=== PATIENT | female | born 1950 | race Caucasian/White ===

== ENCOUNTER 2017-10-27 09:04 | Emergency (ER) | payer MEDICARE, OTHER ==
--- NOTE | 2017-10-28 16:02 | ER ---
DATE SEEN: 10/27/2017 TIME SEEN: The patient was seen at approximately 0910 hours. HISTORY OF PRESENT ILLNESS: This 66-year-old, nonsmoking and nondiabetic, woman comes in with 5 days of treatment with Tamiflu. She is on her last dose today. She still has the cough with mild headache. Denies temperatures. Denies fever, sore throat, or sinus pressure, but she has myalgia and feels "weak and dizzy" in her legs. She has not fallen down. No previous history of falling. A year ago, she did fall per her daughter. PAST MEDICAL HISTORY: Significant for hypothyroidism, dyslipidemia, hypertension, and depression. REVIEW OF SYSTEMS: Negative, except for HPI. PAST SURGICAL HISTORY: No previous history of hip fracture or previous surgery. ALLERGIES: None. CURRENT MEDICATIONS: 1. Zoloft. 2. BuSpar. 3. Lisinopril. 4. Atorvastatin. 5. Levothyroxine. PHYSICAL EXAMINATION: VITAL SIGNS: Blood pressure 149/89 and repeat blood pressure 134/86, heart rate 76 and followup heart rate 71, respirations 18 and repeat was 16, 95% oxygen saturation, and temperature is 36.4 degrees centigrade. BMI is 31.5 kg/m2. GENERAL: The patient is overweight. She is attended by her daughter. She has noticeable jowls in her jaw. HEENT: PERRLA intact. Pharynx without abnormality - negative. She has a very, very slight asymmetry of the face, more prominent on left, nasopharyngeal fold as opposed to less on the right. No dysesthesia or hypoesthesia in upper and lower face. Hearing is intact. LUNGS: Clear without rales, rhonchi, or wheezes. No chest wall discomfort. HEART: S1, S2. No murmur. ABDOMEN: Soft. No guarding. No discomfort. EXTREMITIES: Without difficulty. NEUROLOGIC: Complete neurological exam is normal deep tendon reflexes, cranial nerves 2 through 12, oriented, gait and strength of upper and lower extremities. No pronator drift. No dysmetria. Trifle tremor. ASSESSMENT: 1. Status post treatment for flu. 2. Bronchitis, which is residual of the flu. She still will have 24 hours of shedding of the virus. She needs to use a face mask and use it for 24/7 until her cough has relented. She is the source of other viral particles and other people are coughing in the same residence where she lives. If she gets worse cough, maybe she has encountering a different virus. At this point, follow up with her doctor as needed in a week. PLAN: The patient has been advised that the CDC and other Infectious Disease groups note that she has an average of 18 days of coughing. She still has 10 to 11 more days of coughing expected. She has talked about "what am I going to do for headache". The headache is residual of her cough. She has no suggestion of any neurological deficit that would require a CT of the head or further neurological followup. She can use Tylenol and ibuprofen; 1000 mg of Tylenol, ibuprofen 600 mg q.6 hours. She has been advised, yes she will have a headache as long as she coughs, and she is to use a face mask, it may diminish her cough by 50+ percent and have less of a headache. /[id number] MACKENZIE/SITA DENNIS
== END 2017-10-27 10:26 | disposition home or self-care (01) ==
LOC: FB.ED 09:04
DX: J40 Bronchitis, not specified as acute or chronic (principal); J11.1 Influenza due to unidentified influenza virus with other respiratory manifestations; I10 Essential (primary) hypertension; E03.9 Hypothyroidism, unspecified; E78.5 Hyperlipidemia, unspecified; F32.9 Major depressive disorder, single episode, unspecified
CPT/HCPCS: 36415; 80053; 81001; 84484; 85025; 87081; 87430; 87804; 99282; 99283

== ENCOUNTER 2020-08-15 11:42 | Emergency (ER) | payer MEDICARE, OTHER ==
[2020-08-15] MEDS ORDERED: Ondansetron 4 MG Tab.DIS PO ONE (11:43)
--- NOTE | 2020-08-15 12:14 | EDM.PDOC ---
ED HPI GENERAL MEDICAL PROBLEM - General Stated Complaint: NOT FEELING WELL Time Seen by Provider: 08/15/20 12:10 Source of Information: Reports: Patient History Limitations: Reports: No Limitations - History of Present Illness INITIAL COMMENTS - FREE TEXT/NARRATIVE: 69-year-old female who reports she began to have a cough and nasal congestion on 08/07/2020 and she has persisted with these symptoms as well as body aches and headache and malaise but today she felt nausea but had no vomiting. She also had a few loose stools and she "did not feel well today". She denies any pain at present. She has had no chest pain or feelings of shortness of breath. She has had nausea but no vomiting. She has had 2 loose stools today. There was no blood in either of these. She does feel somewhat weak but has had no syncope or presyncope. She has been drinking liquids well. She has not had much of an appetite. She would rate her pain now as a 0/10. No dysuria or hematuria. She has sore throat at the beginning of this but that has resolved. There are no other associated signs or symptoms. There are no other modifying factors. Onset: Other (08/07/2020) Duration: Constant, Getting Worse (Patient feels getting worse with additional symptoms as above.) Location: Reports: Generalized Quality: Reports: Ache Severity: Mild Improves with: Reports: None Worsens with: Reports: None Context: Reports: Other (As above) Associated Symptoms: Reports: Cough, Fever/Chills, Loss of Appetite, Malaise, Nausea/Vomiting, Weakness Treatments WOOD POLE TREATER: Reports: Acetaminophen, Other (see below) Other Treatments WOOD POLE TREATER: Advil in AM - Related Data Allergies Allergy/AdvReac Type Severity Reaction Status Date / Time No Known Allergies Allergy Verified 08/15/20 11:59 Home Meds: Home Meds Levothyroxine 112 mcg PO DAILY 10/27/17 [History] Lisinopril 20 mg PO DAILY 10/27/17 [History] atorvaSTATin [Lipitor] 60 mg PO BEDTIME 10/27/17 [History] busPIRone [Buspar] 15 mg PO BID 10/27/17 [History] Ezetimibe 10 mg PO DAILY 08/15/20 [History] Ondansetron [Zofran ODT] 4 mg PO Q6H PRN #8 tab.dis 08/15/20 [Rx] Past Medical History HEENT History: Reports: Impaired Vision Cardiovascular History: Reports: High Cholesterol, Hypertension Endocrine/Metabolic History: Reports: Hypothyroidism - Past Surgical History Musculoskeletal Surgical History: Reports: Shoulder Surgery (Right shoulder open reduction internal fixation) Social & Family History - Tobacco Use Tobacco Use Status *Q: Unknown Ever Used Tobacco (Nonsmoker.) - Caffeine Use Caffeine Use: Reports: Coffee, Soda - Alcohol Use Alcohol Use History: Yes Alcohol Use Frequency: Weekly - Living Situation & Occupation Occupation: Retired ED ROS GENERAL - Review of Systems Review Of Systems: See Below Constitutional: Reports: Fever, Malaise, Weakness, Fatigue, Decreased Appetite HEENT: Reports: Other (Nasal congestion) Respiratory: Reports: Cough Cardiovascular: Reports: No Symptoms GI/Abdominal: Reports: Diarrhea, Nausea : Reports: No Symptoms Musculoskeletal: Reports: Other (Body aches) Skin: Reports: No Symptoms Neurological: Reports: Headache Hematologic/Lymphatic: Reports: No Symptoms Immunologic: Reports: No Symptoms ED EXAM, GENERAL - Physical Exam Exam: See Below Exam Limited By: No Limitations General Appearance: Alert, WD/WN, No Apparent Distress Eye Exam: Bilateral Eye: EOMI, Normal Inspection Ears: Normal External Exam, Hearing Grossly Normal Ear Exam: Bilateral Ear: Auricle Normal Nose: No Blood, Other (Nasal congestion) Throat/Mouth: Normal Voice, No Airway Compromise, Other (Moist membranes.) Head: Atraumatic, Normocephalic Neck: Normal Inspection, Supple, Non-Tender, Full Range of Motion Respiratory/Chest: No Respiratory Distress, Lungs Clear, Normal Breath Sounds, No Accessory Muscle Use, Chest Non-Tender Cardiovascular: Normal Peripheral Pulses, Regular Rate, Rhythm, No JVD, No Murmur Peripheral Pulses: 2+: Radial (L), Radial (R) GI/Abdominal: Normal Bowel Sounds, Soft, Non-Tender, No Mass Back Exam: Normal Inspection Extremities: Normal Inspection, Normal Range of Motion, Non-Tender, No Pedal Edema, Normal Capillary Refill Neurological: Alert, Oriented, CN II-XII Intact, Normal Cognition, No Motor/Sensory Deficits Skin Exam: Warm, Dry, Intact, Normal Color, No Rash Course - Vital Signs Last Recorded V/S: Last Vital Signs Temp 36.4 C 08/15/20 12:00 Pulse 91 08/15/20 12:00 Resp 18 08/15/20 12:00 BP 120/72 08/15/20 12:00 Pulse Ox 97 08/15/20 12:00 - Orders/Labs/Meds Orders: Active Orders 24 hr Category Date Time Status CORONAVIRUS (COVID19) [facility] Routine Lab 08/15/20 12:10 Received Labs: Laboratory Tests 08/15/20 Range/Units 12:10 Group A Strep (PCR) Negative (NEGATIVE) - Re-Assessments/Exams Free Text/Narrative Re-Assessment/Exam: 08/15/20 12:30: Patient with URI type symptoms. She has some nausea but has had no vomiting. She has had a few loose stools. Her blood pressure and pulse are normal. She does not appear dehydrated. Her O2 saturation is normal. A rapid strep was performed and was negative. A swab for COVID 19 test was collected and sent for testing. I will give the patient a take home pack of Zofran. She can use this for nausea as needed. She can also get Imodium ([id number]) diarrhea as needed. Treatment is symptomatic. Precautions and reasons for return to the emergency department were discussed with the patient while she was in the emergency department and were detailed in the patient's discharge instructions. It was stressed that did stay at home and avoid contact with others until the test result for Covid 19 has come back. Departure - Departure Time of Disposition: 12:45 Disposition: Home, Self-Care 01 Condition: Good (Stable) Clinical Impression: URI (upper respiratory infection) Qualifiers: URI type: unspecified URI Qualified Code(s): J06.9 - Acute upper respiratory infection, unspecified - Discharge Information Prescriptions: Ondansetron [Zofran ODT] 4 mg PO Q6H PRN #8 tab.dis PRN Reason: Nausea/Vomiting Referrals: PCP,None [Primary Care Provider] - Additional Instructions: Your strep screen was negative. You appear to have an upper respiratory infection. This appears to be a viral illness. We did send testing for Covid 19. The results of this test will be back sometime next week. You should self quarantine until the test result is back. Drink plenty of fluids. Take Tylenol and ibuprofen as needed for fever or pain. Medication as prescribed for nausea (Zofran 4 mg ODT). You can also get Imodium ([id number]) and take that as needed for diarrhea. Back to the emergency department for unrelenting vomiting, severe weakness, shortness of breath, chest pain or any other concerning sign or symptom. Sepsis Event Note (ED) - Evaluation Sepsis Screening Result: No Definite Risk - Focused Exam Vital Signs: Vital Signs Temp Pulse Resp BP Pulse Ox 08/15/20 12:00 36.4 C 91 18 120/72 97 - My Orders Last 24 Hours: My Active Orders 08/15/20 12:10 CORONAVIRUS (COVID19) [facility] Routine - Assessment/Plan Last 24 Hours: My Active Orders 08/15/20 12:10 CORONAVIRUS (COVID19) [facility] Routine
[2020-08-17 16:46] LABS: CORNONAVIRUS (COVID19) CSH-NRL Positive (Negative)
== END 2020-08-15 12:55 | disposition home or self-care (01) ==
LOC: FB.ED 11:42
DX: U07.1 COVID-19 (principal); J06.9 Acute upper respiratory infection, unspecified; E78.00 Pure hypercholesterolemia, unspecified; I10 Essential (primary) hypertension; E03.9 Hypothyroidism, unspecified; Z79.899 Other long term (current) drug therapy
CPT/HCPCS: 87651; 99284; U0003; A9270-GY

== ENCOUNTER 2020-12-04 00:05 | Emergency (ER) | payer MEDICARE, OTHER ==
[2020-12-04] MEDS ORDERED: Sodium Chloride 0.9% 10 ML Syringe FLUSH PRN (00:23)
[2020-12-04] MEDS ORDERED: Ondansetron 4 MG/2 ML SDV IVPUSH STA ×2 (00:23→00:54)
[2020-12-04] MEDS ORDERED: Ondansetron 4 MG Tab.DIS PO STA (00:27)
[2020-12-04] MEDS ORDERED: Sodium Chloride 0.9% 1,000 ML IV SCH ×2 (00:30→01:00)
[2020-12-04] MEDS ORDERED: Ketorolac 30 MG/ML SDV IVPUSH ONE (00:55)
--- NOTE | 2020-12-04 01:18 | EDM.PDOC ---
ED HPI GENERAL MEDICAL PROBLEM - General Chief Complaint: Gastrointestinal Problem Stated Complaint: DIZZY; NAUSEA; PUKING Time Seen by Provider: 12/04/20 00:10 Source of Information: Reports: Patient History Limitations: Reports: No Limitations - History of Present Illness INITIAL COMMENTS - FREE TEXT/NARRATIVE: Patient presented to the ED because of persistent nausea and vomiting which started hours after she took trazodone 150 mg and gabapentin 100 mg for insomnia. She also c/o dizziness and she fell on the bathroom floor. She was able to get up and walk but c/o low back pain,11/27. - Related Data Allergies Allergy/AdvReac Type Severity Reaction Status Date / Time No Known Allergies Allergy Verified 12/04/20 00:19 Home Meds: Home Meds Ezetimibe 10 mg PO DAILY 08/15/20 [History] Gabapentin [Neurontin] 100 mg PO BEDTIME 12/04/20 [History] Hydrochlorothiazide/Lisinopril [Lisinopril/HCTZ 10-12.5 MG] 1 tab PO DAILY 12/04/20 [History] Levothyroxine 12.5 mcg PO ACBREAKFAST 12/04/20 [History] Levothyroxine [Synthroid] 50 mcg PO DAILY 12/04/20 [History] Mirabegron [Myrbetriq] 25 mg PO DAILY 12/04/20 [History] Pravastatin [Pravachol] 40 mg PO DAILY 12/04/20 [History] hydrOXYzine pamoate [Vistaril] 25 - 50 mg PO BEDTIME #30 cap 12/04/20 [Rx] traZODone 50 mg PO BEDTIME 12/04/20 [History] Past Medical History HEENT History: Reports: Impaired Vision Cardiovascular History: Reports: High Cholesterol, Hypertension Other Gastrointestinal History: diarrhea today 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 Musculoskeletal History: shoulder surgery Endocrine/Metabolic History: Reports: Hypothyroidism - Infectious Disease History Infectious Disease History: Reports: Chicken Pox - Past Surgical History HEENT Surgical History: Reports: None Cardiovascular Surgical History: Reports: None GI Surgical History: Reports: None Endocrine Surgical History: Reports: None Musculoskeletal Surgical History: Reports: Shoulder Surgery Social & Family History - Family History Family Medical History: Unobtainable HEENT: Reports: None - Tobacco Use Tobacco Use Status *Q: Never Tobacco User - Caffeine Use Caffeine Use: Reports: None - Recreational Drug Use Recreational Drug Use: No - Living Situation & Occupation Occupation: Retired ED ROS GENERAL - Review of Systems Review Of Systems: See Below Constitutional: Reports: No Symptoms HEENT: Reports: No Symptoms Respiratory: Reports: No Symptoms Cardiovascular: Reports: No Symptoms Endocrine: Reports: No Symptoms GI/Abdominal: Reports: No Symptoms : Reports: No Symptoms Musculoskeletal: Reports: Back Pain Skin: Reports: No Symptoms Neurological: Reports: No Symptoms Psychiatric: Reports: No Symptoms ED EXAM, GI/ABD - Physical Exam Exam: See Below Exam Limited By: No Limitations General Appearance: Alert, No Apparent Distress Ears: Normal External Exam, Normal Canal Nose: Normal Inspection, Normal Mucosa Throat/Mouth: Normal Inspection, Normal Lips Head: Atraumatic, Normocephalic Neck: Normal Inspection, Supple, Non-Tender, Full Range of Motion Respiratory/Chest: No Respiratory Distress, Lungs Clear, Normal Breath Sounds Cardiovascular: Normal Peripheral Pulses, Regular Rate, Rhythm, No Edema, No Gallop, No JVD, No Murmur, No Rub GI/Abdominal Exam: Normal Bowel Sounds, Soft, Non-Tender, No Organomegaly Back Exam: Normal Inspection, Muscle Spasm Extremities: Normal Inspection, Normal Range of Motion, Non-Tender Course - Vital Signs Text/Narrative:: Labs reviewed with patient and her daughter NS 1 L bolus Zofran ODT 4 mg PO x1 Zofran 4 mg IV x1 Toradol 15 mg IV x1 Last Recorded V/S: Last Vital Signs Temp 36.6 C 12/04/20 00:05 Pulse 80 12/04/20 00:05 Resp 15 12/04/20 00:05 BP 117/61 12/04/20 00:05 Pulse Ox 97 12/04/20 00:05 - Orders/Labs/Meds Orders: Active Orders 24 hr Category Date Time Status Chest 1V Frontal [CR] Stat Exams 12/04/20 00:25 Stop Req Sodium Chloride 0.9% [Normal Saline] 1,000 ml Med 12/04/20 01:00 Active IV ASDIRECTED EKG 12 Lead [EK] Routine Ther 12/04/20 00:23 Stop Req Medication Orders Sodium Chloride (Normal Saline) 1,000 mls @ 999 mls/hr IV ASDIRECTED RALPH Last Admin: 12/04/20 01:00 Dose: 999 mls/hr Documented by: ROBERTO Labs: Laboratory Tests 12/04/20 12/04/20 Range/Units 00:45 00:45 WBC 17.6 H (3.0-10.3) x10-3/uL RBC 4.28 (3.60-5.20) x10(6)uL Hgb 13.2 (11.4-15.5) g/dL Hct 40.3 (34.2-48.2) % MCV 94.1 (76.7-100.5) fL MCH 30.8 (23.9-33.9) pg MCHC 32.7 (31.9-34.8) g/dL RDW 13.4 (12.3-16.5) % Plt Count 375 (151-488) x10(3)uL MPV 7.2 (7.1-12.4) fL Add Manual Diff Yes Neutrophils % (Manual) 70 (46-82) % Band Neutrophils % 2 (0-6) % Lymphocytes % (Manual) 19 (13-37) % Monocytes % (Manual) 8 (4-12) % Eosinophils % (Manual) 1 (0-5) % Sodium 140 (135-145) mmol/L Potassium 3.5 (3.5-5.3) mmol/L Chloride 101 (100-110) mmol/L Carbon Dioxide 27 (21-32) mmol/L BUN 16 (7-18) mg/dL Creatinine 1.1 H (0.55-1.02) mg/dL Est Cr Clr Drug Dosing 39.37 mL/min Estimated GFR (MDRD) 49 L (>60) BUN/Creatinine Ratio 14.5 (9-20) Glucose 126 H (80-116) mg/dL Calcium 9.1 (8.6-10.2) mg/dL Meds: Medications Generic Name Dose Route Start Last Admin Trade Name Freq PRN Reason Stop Dose Admin Sodium Chloride 1,000 mls @ 999 mls/hr 12/04/20 01:00 12/04/20 01:00 Normal Saline IV 999 mls/hr ASDIRECTED RALPH Administration Discontinued Medications Generic Name Dose Route Start Last Admin Trade Name Freq PRN Reason Stop Dose Admin Sodium Chloride 1,000 mls @ 999 mls/hr 12/04/20 00:30 Normal Saline IV ASDIRECTED RALPH Ketorolac Tromethamine 15 mg 12/04/20 00:55 12/04/20 01:00 Ketorolac 30 Mg/Ml Sdv IVPUSH 12/04/20 00:56 15 mg ONETIME ONE Administration Ondansetron HCl 4 mg 12/04/20 00:23 12/04/20 01:00 Ondansetron 4 Mg/2 Ml Sdv IVPUSH 12/04/20 00:24 4 mg NOW STA Administration Ondansetron HCl 4 mg 12/04/20 00:27 12/04/20 00:35 Ondansetron 4 Mg Tab.Dis PO 12/04/20 00:28 4 mg NOW STA Administration Ondansetron HCl 4 mg 12/04/20 00:54 12/04/20 01:10 Ondansetron 4 Mg/2 Ml Sdv IVPUSH 12/04/20 00:55 Not Given NOW STA Sodium Chloride 10 ml 12/04/20 00:23 12/04/20 00:55 Sodium Chloride 0.9% 10 Ml Syringe FLUSH 10 ml ASDIRECTED PRN Administration Keep Vein Open Departure - Departure Time of Disposition: 01:45 Disposition: Home, Self-Care 01 Condition: Good Clinical Impression: Medication side effect, Low back pain - Discharge Information Prescriptions: hydrOXYzine pamoate [Vistaril] 25 - 50 mg PO BEDTIME #30 cap Instructions: Nausea and Vomiting, Adult, [id number] Referrals: Denisa Juares, WATER QUALITY MANAGER [Primary Care Provider] - Additional Instructions: Please read discharge instructions on medication side effects, nausea and vomiting Quit taking trazodone and gabapentin Take vistaril 25-50 mg at bed time for sleep Follow up as needed Sepsis Event Note (ED) - Evaluation Sepsis Screening Result: No Definite Risk - Focused Exam Vital Signs: Vital Signs Temp Pulse Resp BP Pulse Ox 12/04/20 00:05 36.6 C 80 15 117/61 97 - My Orders Last 24 Hours: My Active Orders 12/04/20 00:23 EKG 12 Lead [EK] Routine 12/04/20 00:25 Chest 1V Frontal [CR] Stat 12/04/20 01:00 Sodium Chloride 0.9% [Normal Saline] 1,000 ml IV ASDIRECTED - Assessment/Plan Last 24 Hours: My Active Orders 12/04/20 00:23 EKG 12 Lead [EK] Routine 12/04/20 00:25 Chest 1V Frontal [CR] Stat 12/04/20 01:00 Sodium Chloride 0.9% [Normal Saline] 1,000 ml IV ASDIRECTED
== END 2020-12-04 02:00 | disposition home or self-care (01) ==
LOC: FB.ED 00:05
DX: M54.5 Low back pain (principal); R11.2 Nausea with vomiting, unspecified; R42 Dizziness and giddiness; T42.6X5A Adverse effect of other antiepileptic and sedative-hypnotic drugs, initial encounter; I10 Essential (primary) hypertension; E78.00 Pure hypercholesterolemia, unspecified; E03.9 Hypothyroidism, unspecified; Z79.899 Other long term (current) drug therapy
CPT/HCPCS: 36415; 80048; 85025; 96374; 96375; 99284; A9270; J1885; J2405; J7030; 99283

== ENCOUNTER 2021-07-02 15:58 | Emergency (ER) | payer MEDICARE ==
[2021-07-02] MEDS ORDERED: Acetaminophen 500 MG Tab PO ONE (16:41)
[2021-07-02] MEDS ORDERED: Ondansetron 4 MG/2 ML SDV IVPUSH ONE (16:41)
[2021-07-02] MEDS ORDERED: Sodium Chloride 0.9% 10 ML Syringe FLUSH PRN (16:41)
[2021-07-02] MEDS ORDERED: Sodium Chloride 0.9% 1,000 ML IV SCH (16:45)
--- NOTE | 2021-07-02 18:10 | EDM.PDOC ---
ED HPI GENERAL MEDICAL PROBLEM - General Chief Complaint: General Stated Complaint: vomiting, headache Time Seen by Provider: 07/02/21 16:45 Source of Information: Reports: Patient, Family History Limitations: Reports: No Limitations - History of Present Illness INITIAL COMMENTS - FREE TEXT/NARRATIVE: Patient presented to the ED because of nausea and occipital headache. She had a hysterectomy yesterday and today she c/o nausea and vomiting x1. She called the [facility] surgeon who and was prescribed Zofran ODt which she didn't picked up and went to the ED instead. there is no fever, chills, cough/cold. back/headache Pain Score (Numeric/FACES): 5 - Related Data Allergies Allergy/AdvReac Type Severity Reaction Status Date / Time No Known Allergies Allergy Verified 12/04/20 00:19 Home Meds: Home Meds Ezetimibe 10 mg PO DAILY 08/15/20 [History] Gabapentin [Neurontin] 100 mg PO BEDTIME 12/04/20 [History] Hydrochlorothiazide/Lisinopril [Lisinopril/HCTZ 10-12.5 MG] 1 tab PO DAILY 12/04/20 [History] Levothyroxine 12.5 mcg PO ACBREAKFAST 12/04/20 [History] Levothyroxine [Synthroid] 50 mcg PO DAILY 12/04/20 [History] Mirabegron [Myrbetriq] 25 mg PO DAILY 12/04/20 [History] Pravastatin [Pravachol] 40 mg PO DAILY 12/04/20 [History] hydrOXYzine pamoate [Vistaril] 25 - 50 mg PO BEDTIME #30 cap 12/04/20 [Rx] traZODone 50 mg PO BEDTIME 12/04/20 [History] Past Medical History HEENT History: Reports: Impaired Vision Cardiovascular History: Reports: High Cholesterol, Hypertension Other Gastrointestinal History: diarrhea today [employer] History: Reports: Other Musculoskeletal History: shoulder surgery Endocrine/Metabolic History: Reports: Hypothyroidism - Infectious Disease History Infectious Disease History: Reports: Chicken Pox - Past Surgical History HEENT Surgical History: Reports: None Cardiovascular Surgical History: Reports: None GI Surgical History: Reports: None Female Surgical History: Reports: Hysterectomy Endocrine Surgical History: Reports: None Musculoskeletal Surgical History: Reports: Shoulder Surgery Social & Family History - Family History Family Medical History: Unobtainable HEENT: Reports: None - Tobacco Use Tobacco Use Status *Q: Never Tobacco User Second Hand Smoke Exposure: No - Caffeine Use Caffeine Use: Reports: Coffee - Alcohol Use Days Per Week of Alcohol Use: 7 Number of Drinks Per Day: 3 Total Drinks Per Week: 21 - Recreational Drug Use Recreational Drug Use: No - Living Situation & Occupation Occupation: Retired ED ROS GENERAL - Review of Systems Review Of Systems: See Below Constitutional: Reports: No Symptoms HEENT: Reports: No Symptoms Respiratory: Reports: No Symptoms Cardiovascular: Reports: No Symptoms Endocrine: Reports: No Symptoms GI/Abdominal: Reports: Nausea, Vomiting : Reports: No Symptoms Musculoskeletal: Reports: No Symptoms Skin: Reports: No Symptoms Neurological: Reports: Headache Psychiatric: Reports: No Symptoms ED EXAM, GENERAL - Physical Exam Exam: See Below Exam Limited By: No Limitations General Appearance: Alert, No Apparent Distress Eye Exam: Bilateral Eye: PERRL Ears: Normal External Exam, Normal Canal, Hearing Grossly Normal Nose: Normal Inspection, Normal Mucosa, No Blood Throat/Mouth: Normal Inspection, Normal Lips, Normal Teeth, Normal Gums, Normal Oropharynx, Normal Voice Head: Atraumatic, Normocephalic Neck: Normal Inspection, Supple, Non-Tender, Full Range of Motion Respiratory/Chest: No Respiratory Distress, Lungs Clear, Normal Breath Sounds, No Accessory Muscle Use, Chest Non-Tender Cardiovascular: Normal Peripheral Pulses, Regular Rate, Rhythm, No Edema, No Gallop, No JVD, No Murmur, No Rub GI/Abdominal: Normal Bowel Sounds, Soft, Non-Tender, No Organomegaly, No Distention, No Abnormal Bruit, No Mass Back Exam: Normal Inspection, Full Range of Motion Extremities: Normal Inspection, Normal Range of Motion, Non-Tender, No Pedal Edema, Normal Capillary Refill Course - Vital Signs Text/Narrative:: Lab result was reviewed and discussed with patient and her daughter NS 1 L bolus Zofran 4 mg IV x1 Last Recorded V/S: Last Vital Signs Temp 36.8 C 07/02/21 18:15 Pulse 78 07/02/21 18:15 Resp 18 07/02/21 18:15 BP 136/74 07/02/21 18:15 Pulse Ox 96 07/02/21 18:15 - Orders/Labs/Meds Orders: Active Orders 24 hr Category Date Time Status Saline Lock Insert [OM.PC] Routine Oth 07/02/21 16:41 Ordered Labs: Laboratory Tests 07/02/21 07/02/21 Range/Units 16:50 16:50 WBC 10.7 H (3.0-10.3) x10-3/uL RBC 4.37 (3.60-5.20) x10(6)uL Hgb 13.4 (11.4-15.5) g/dL Hct 40.8 (34.2-48.2) % MCV 93.2 (76.7-100.5) fL MCH 30.6 (23.9-33.9) pg MCHC 32.8 (31.9-34.8) g/dL RDW 12.1 L (12.3-16.5) % Plt Count 362 (151-488) x10(3)uL MPV 6.7 L (7.1-12.4) fL Neut % (Auto) 83.0 H (30.8-76.2) % Lymph % (Auto) 11.5 L (18.4-52.1) % [place] % (Auto) 5.3 (4.4-15.7) % Eos % (Auto) 0.0 L (0.6-8.1) % Baso % (Auto) 0.2 (0.2-1.5) % Neut # (Auto) 8.9 H (1.5-6.3) x10-3/uL Lymph # (Auto) 1.2 (1.0-4.4) x10-3/uL [place] # (Auto) 0.6 (0.3-1.0) x10-3/uL Eos # (Auto) 0.0 (0.0-0.8) x10-3/uL Baso # (Auto) 0.0 (0.0-0.1) x10-3/uL Sodium 139 (135-145) mmol/L Potassium 4.0 (3.5-5.3) mmol/L Chloride 103 (100-110) mmol/L Carbon Dioxide 27 (21-32) mmol/L BUN 7 (7-18) mg/dL Creatinine 0.7 (0.55-1.02) mg/dL Est Cr Clr Drug Dosing TNP Estimated GFR (MDRD) > 60 (>60) BUN/Creatinine Ratio 10.0 (9-20) Glucose 123 H (80-116) mg/dL Calcium 8.9 (8.6-10.2) mg/dL Meds: Medications Discontinued Medications Generic Name Dose Route Start Last Admin Trade Name Marilee PRN Reason Stop Dose Admin Acetaminophen 1,000 mg 07/02/21 16:41 07/02/21 16:49 Acetaminophen 500 Mg Tab PO 07/02/21 16:42 1,000 mg ONETIME ONE Administration Sodium Chloride 1,000 mls @ 999 mls/hr 07/02/21 16:45 07/02/21 16:48 Normal Saline IV 999 mls/hr ASDIRECTED RALPH Administration Ondansetron HCl 4 mg 07/02/21 16:41 07/02/21 16:49 Ondansetron 4 Mg/2 Ml Sdv IVPUSH 07/02/21 16:42 4 mg ONETIME ONE Administration Sodium Chloride 10 ml 07/02/21 16:41 Sodium Chloride 0.9% 10 Ml Syringe FLUSH ASDIRECTED PRN Keep Vein Open Departure - Departure Time of Disposition: 18:10 Disposition: Home, Self-Care 01 Condition: Good Clinical Impression: Dehydration, Headache, Nausea & vomiting - Discharge Information Instructions: General Headache Without Cause, Nausea and Vomiting, Adult, Oqid-[id number], Dehydration, Elderly, [id number]-Cypt Referrals: Denisa Juares [employer] SPECIALIST [Primary Care Provider] - Forms: ED Department Discharge Additional Instructions: Please read discharge instructions on nausea/vomiting,weakness, dehydration, headache Zofran ODT 4 mg every 4 hours as needed for nausea Drink at least 2 liters of water daily TYlenol 1000 mg every 8 hours as needed for headache Follow up as needed Sepsis Event Note (ED) - Evaluation Sepsis Screening Result: No Definite Risk - My Orders Last 24 Hours: My Active Orders 07/02/21 16:41 Saline Lock Insert [OM.PC] Routine - Assessment/Plan Last 24 Hours: My Active Orders 07/02/21 16:41 Saline Lock Insert [OM.PC] Routine
== END 2021-07-02 18:20 | disposition home or self-care (01) ==
LOC: FB.ED 15:58
DX: R51.9 Headache, unspecified (principal); R11.2 Nausea with vomiting, unspecified; E86.0 Dehydration; E78.00 Pure hypercholesterolemia, unspecified; I10 Essential (primary) hypertension; E03.9 Hypothyroidism, unspecified; Z79.899 Other long term (current) drug therapy
CPT/HCPCS: 36415; 80048; 85025; 96374; 99284; A9270; J2405; J7030

== ENCOUNTER 2025-05-10 20:48 | Emergency (ER) | payer MEDICARE ==
[2025-05-10 21:56] LABS: BASOPHILS ABSOLUTE AUTO 0.1 x10-3/uL (0.0-0.1); BASOPHILS PERCENT AUTO 0.6 % (0.2-1.5); EOSINOPHILS ABSOLUTE AUTO 0.1 x10-3/uL (0.0-0.8); EOSINOPHILS PERCENT AUTO 0.9 % (0.6-8.1); LYMPHOCYTES ABSOLUTE AUTO 1.8 x10-3/uL (1.0-4.4); LYMPHOCYTES PERCENT AUTO 20.8 % (18.4-52.1); MEAN PLATELET VOLUME 6.7 fL (7.1-12.4); MONOCYTES ABSOLUTE AUTO 0.4 x10-3/uL (0.3-1.0); MONOCYTES PERCENT AUTO 5.1 % (4.4-15.7); NEUTROPHILS ABSOLUTE AUTO 6.2 x10-3/uL (1.5-6.3); NEUTROPHILS PERCENT AUTO 72.6 % (30.8-76.2); PLATELET COUNT,PLT 285 x10(3)uL (151-488); RED BLOOD CELL COUNT 3.68 x10(6)uL (3.60-5.20); RED CELL DISTRIBUTION WIDTH 12.9 % (12.3-16.5); WHITE BLOOD CELL COUNT,WBC 8.6 x10-3/uL (3.0-10.3)
[2025-05-10 22:02] LABS: BLOOD UREA NITROGEN,BUN 13 mg/dL (7-18); CARBON DIOXIDE,CO2 25 mmol/L (21-32); CHLORIDE,CL 106 mmol/L (100-110); CREATININE 0.8 mg/dL (0.55-1.02); ESTIMATED GFR 77 mL/min (>60); GLUCOSE RANDOM 116 mg/dL (80-116); POTASSIUM,K 3.2 mmol/L (3.5-5.3); SODIUM,NA 143 mmol/L (135-145)
[2025-05-10 22:07] LABS: A/G RATIO 1.1; ALANINE AMINOTRANSFERASE,ALT 17 U/L (12-36); ASPARTATE AMNIOTRANSFERASE,AST 18 IU/L (5-25); BILIRUBIN TOTAL 0.3 mg/dL (0.1-1.3); PROTEIN TOTAL,TP 7.0 g/dL (6.0-8.0)
[2025-05-10] MEDS: Ondansetron 4 MG/2 ML SDV IVPUSH ONE (22:11)
[2025-05-10] MEDS ORDERED: Naloxone 0.4 MG/ML SDV IVPUSH PRN (22:46)
[2025-05-10] MEDS: HYDROmorphone 2 MG/ML SDV IVPUSH ONE (22:59)
[2025-05-10 23:19] LABS: GLUCOSE,URINE NORMAL (NORMAL); OCCULT BLOOD,URINE NEGATIVE (NEGATIVE)
[2025-05-10 23:21] LABS: APPEARANCE,URINE SLIGHTLY CLOUDY (CLEAR)
[2025-05-10 23:25] LABS: SQUAMOUS EPITHELIAL CELLS,UR OCCASIONAL (NS,R,O)
== END 2025-05-11 00:35 ==
LOC: FB.ED 20:48
DX: S72.141A Displaced intertrochanteric fracture of right femur, initial encounter for closed fracture (principal); E78.00 Pure hypercholesterolemia, unspecified; I10 Essential (primary) hypertension; E03.9 Hypothyroidism, unspecified; Z79.899 Other long term (current) drug therapy; Z79.890 Hormone replacement therapy; W01.198A Fall on same level from slipping, tripping and stumbling with subsequent striking against other object, initial encounter; Y93.89 Activity, other specified
CPT/HCPCS: 36415; 51702; 70450; 73502; 73560; 80053; 80307; 81001; 83735; 85025; 87086; 87088; 87186; 93005; 96361; 96374; 96375; 99285; J0696; J1171; J2405; J2765; J7030

== ENCOUNTER 2025-09-05 17:37 | Observation (INO) | payer MEDICARE ==
[2025-09-05] MEDS ORDERED: Sodium Chloride 0.9% 10 ML Syringe FLUSH PRN (19:25)
[2025-09-05] MEDS: Lactated Ringers 1,000 ML IV SCH (21:06)
[2025-09-06 09:27] LABS: PLATELET COUNT,PLT 326.0 x10(3)uL (151-488); RED BLOOD CELL COUNT 4.16 x10(6)uL (3.60-5.20); RED CELL DISTRIBUTION WIDTH 14.4 % (12.3-16.5); WHITE BLOOD CELL COUNT,WBC 5.5 x10-3/uL (3.0-10.3)
[2025-09-06 09:28] LABS: BLOOD UREA NITROGEN,BUN 8 mg/dL (7-18); CARBON DIOXIDE,CO2 27 mmol/L (21-32); CHLORIDE,CL 105 mmol/L (100-110); CREATININE 0.5 mg/dL (0.55-1.02); EST CRCL DRUG DOSING (CG) 79.86 mL/min; ESTIMATED GFR 98 mL/min (>60); GLUCOSE RANDOM 97 mg/dL (80-116); POTASSIUM,K 3.7 mmol/L (3.5-5.3); SODIUM,NA 142 mmol/L (135-145)
[2025-09-06] MEDS ORDERED: Midazolam 1 MG/ML 2 ML SDV IV ONE (12:54)
[2025-09-06] MEDS ORDERED: Propofol 200 MG/20 ML SDV IV ONE (12:54)
== END 2025-09-06 12:55 | disposition home or self-care (01) ==
LOC: FB.ED 17:37 → FB.MS 19:30
PROVIDERS: ADMIT Surgery; ATTEND Surgery
DX: K29.50 Unspecified chronic gastritis without bleeding (principal); W44.F3XA Food entering into or through a natural orifice, initial encounter; R13.10 Dysphagia, unspecified; E78.00 Pure hypercholesterolemia, unspecified; I10 Essential (primary) hypertension; E03.9 Hypothyroidism, unspecified; F32.A Depression, unspecified; F41.9 Anxiety disorder, unspecified; Z79.899 Other long term (current) drug therapy
CPT/HCPCS: 00731; 36415; 43239; 43247; 80048; 85027; 88305; 88342; 96374; 99100; 99284; 99285; A9270; G0378; J2003; J2250; J2470; J2704; J2765; J7120